=== PATIENT | male | born 1990 | race Two or more races ===

== ENCOUNTER → 2019-06-06 06:15 | Outpatient (CLI) | payer OTHER | END | disposition home or self-care (01) | LOC: LAB 06:15 | DX: R10.10 Upper abdominal pain, unspecified (principal) ==

== ENCOUNTER → 2019-06-06 | Outpatient (CLI) | payer OTHER | END | disposition home or self-care (01) | LOC: SONOGRAMA 07:05 | DX: R10.10 Upper abdominal pain, unspecified (principal) ==

== ENCOUNTER → 2020-01-15 05:59 | Outpatient (CLI) | payer OTHER | END | disposition home or self-care (01) | LOC: LAB 05:59 | PROVIDERS: ATTEND Anesthesiology | DX: Z13.89 Encounter for screening for other disorder (principal) ==

== ENCOUNTER → 2020-01-27 12:18 | Outpatient (CLI) | payer OTHER | END | disposition home or self-care (01) | LOC: LAB 12:18 | PROVIDERS: ATTEND Dentist Oral and Maxillofacial Surgery | DX: Z20.828 Contact with and (suspected) exposure to other viral communicable diseases (principal) ==

== ENCOUNTER 2020-02-08 08:00 | Outpatient (CLI) | payer OTHER | END 2020-02-08 08:06 | disposition home or self-care (01) | LOC: LAB 08:00 | PROVIDERS: ATTEND Dentist Oral and Maxillofacial Surgery | DX: Z20.828 Contact with and (suspected) exposure to other viral communicable diseases (principal) ==

== ENCOUNTER 2021-03-29 08:00 | Outpatient (CLI) | payer OTHER | END 2021-03-29 08:30 | disposition home or self-care (01) | LOC: PPH VACUNA 08:00 | PROVIDERS: ATTEND Emergency Medicine Pediatric Emergency Medicine | DX: Z23 Encounter for immunization (principal) ==